=== PATIENT | male | born 1990 | race Caucasian/White ===

== ENCOUNTER 2018-06-26 04:35 | Emergency (ER) | payer OTHER ==
[~2018-06-26] VITALS: Ht 177.8 cm; Wt 99.8 kg
[~2018-06-26 04:35] MED LIST: MOTRIN800 MG PO
[2018-06-26] MEDS ORDERED: PENICILLIN-VK500 M1 PO (05:14)
== END 2018-06-26 05:28 | disposition home or self-care (01) ==
LOC: ED 04:35
DX: K04.7 Periapical abscess without sinus (principal)

== ENCOUNTER 2023-09-17 16:12 | Emergency (ER) | payer OTHER ==
[~2023-09-17] VITALS: Ht 172.7 cm; Wt 108.9 kg
[~2023-09-17 16:12] MED LIST changes: +PENICILLIN-VK500 M1 PO
[2023-09-17] MEDS ORDERED: ACETAMINOPHEN 325 MG TAB PO ONE (16:40)
[2023-09-17] MEDS ORDERED: TAMIFLU 75MG CA75 MG PO (17:23)
== END 2023-09-17 17:31 | disposition home or self-care (01) ==
LOC: ED 16:12
DX: J10.1 Influenza due to other identified influenza virus with other respiratory manifestations (principal); Z20.822 Contact with and (suspected) exposure to COVID-19; Z88.8 Allergy status to other drugs, medicaments and biological substances; Z98.890 Other specified postprocedural states